=== PATIENT | female | born 1995 | race Asian ===

== ENCOUNTER 2022-07-09 20:29 | Inpatient (IN) | payer OTHER ==
[~2022-07-09] VITALS: Ht 149.9 cm; Wt 56.7 kg
[2022-07-09] MEDS ORDERED: SODIUM CHLORIDE 0.9% 1,000 ML IV ONE ×3 (21:15→22:00)
[2022-07-09] MEDS ORDERED: ONDANSETRON HCL 4MG/2ML INJ IV STA (21:31)
[2022-07-09 21:33] LABS: HEMATOCRIT. 48.7 % (36.0-48.0); HEMOGLOBIN. 14.4 g/dL (12.0-16.0); MEAN CORPUSCULAR HEMOGLOBIN 26.4 pg (28.0-32.0); MEAN CORPUSCULAR VOLUME 89.6 fL (81.0-99.0); PLATELET 564 x1000/uL (130-400); RED BLOOD CELL COUNT 5.43 mill/uL (4.2-5.4); RED CELL DISTRIBUTION WIDTH 13.8 % (11.6-14.6)
[2022-07-09 21:43] LABS: CHLORIDE 98 mEq/L (98-107)
[2022-07-09 21:44] LABS: BG BASE EXCESS -28.6 mmol/L (-2.0-2.0); BG CARBOXYHEMOGLOBIN 0.4 % (0.5-1.5); BG DEOXYHEMOGLOBIN 1.8 % (0.0-5.0); BG HCO3 ACT 2.5 mmol/L (22.0-26.0); BG METHEMOGLOBIN 0.6 % (0.0-1.5); BG OXYGEN SATURATION 98.2 % (92.0-98.5); BG OXYHEMOGLOBIN 97.2 % (94.0-97.0); BG PCO2 12.5 mmHg (35.0-45.0); BG PH 6.924 (7.350-7.450); BG PO2 129.5 mmHg (75.0-100.0); BG SAMPLE SITE LEFT RADIAL; BG VENT MODE ROOM AIR
[2022-07-09 21:47] LABS: HCG SCREEN NEGATIVE
[2022-07-09 21:50] LABS: BETA HYDROXYBUTYRATE 8.3 mMol/L (0.0-0.3); ETHANOL BLOOD < 10 mg/dL
[2022-07-09 21:58] LABS: CLARITY URINE CLEAR (CLEAR); COLOR URINE YELLOW (YELLOW); KETONES URINE 4+ (NEGATIVE); LEUKOCYTE ESTERASE URINE NEGATIVE (NEGATIVE); NITRITE URINE NEGATIVE (NEGATIVE); OCCULT BLOOD URINE 1+ (NEGATIVE); PROTEIN URINE 1+ (NEGATIVE); SPECIFIC GRAVITY URINE 1.023 (1.005-1.030); UROBILINOGEN URINE 0.2 E.U./dL (0.2-1.0)
[2022-07-09] MEDS ORDERED: KCL 20MEQ/100ML PREMIX 100 ML IV PRN (22:00)
[2022-07-09] MEDS ORDERED: INSULIN REGULAR 100U/100ML PMX 100 ML IV NR (22:00)
[2022-07-09] MEDS: SODIUM CHLORIDE 0.9% 1,000 ML IV SCH (22:00)
[2022-07-09] MEDS ORDERED: IPRATROPIUM/ALBUTEROL 0.5-3(2.5)MG/3ML NEB HHN PRN (22:00)
[2022-07-09] MEDS ORDERED: HYDROMORPHONE HCL/PF 2MG/ML CPJ IV PRN (22:00)
[2022-07-09] MEDS ORDERED: ACETAMINOPHEN 650MG SUPP PR PRN ×2 (22:00)
[2022-07-09] MEDS ORDERED: DEXTROSE 50% WATER 50ML SYRINGE IV PRN (22:00)
[2022-07-09] MEDS ORDERED: INSULIN REGULAR (HUMULIN R) 300UNITS/3ML VIAL IV ONE (22:00)
[2022-07-09] MEDS ORDERED: INSULIN REGULAR (DRIP) 100 UNITS in SODIUM CHLORIDE 0.9% 99 ML IV ONE (22:00)
[2022-07-09] MEDS ORDERED: ONDANSETRON HCL 4MG/2ML INJ IV PRN (22:00)
[2022-07-09] MEDS ORDERED: MAGNESIUM 1 G PREMIX 100 ML IV PRN (22:00)
[2022-07-09] MEDS ORDERED: SODIUM BICARBONATE 8.4% 1 MEQ/ML 50ML SYR IV NR (22:00)
[2022-07-09 22:19] LABS: *AMPHETAMINES SCREEN URINE NEGATIVE (NEGATIVE); *BARBITURATES SCREEN URINE NEGATIVE (NEGATIVE); *BENZODIAZEPINES SCREEN URINE NEGATIVE (NEGATIVE); *COCAINE SCREEN URINE NEGATIVE (NEGATIVE); CANNABINOID URINE SCREEN NEGATIVE (NEGATIVE); METHADONE URINE SCREEN NEGATIVE (NEGATIVE); OPIATES URINE SCREEN NEGATIVE (NEGATIVE); PHENCYCLIDINE URINE SCREEN NEGATIVE (NEGATIVE)
[2022-07-09] MEDS: BLOOD SUGAR DIAGNOSTIC STRIP TEST SCH ×2 (22:26→23:23)
[2022-07-09] MEDS ORDERED: INSULIN REGULAR 100U/100ML PMX 100 ML IV PRN (23:00)
[2022-07-10] LABS: PLATELET ESTIMATE MARKEDLY INCREASED
[2022-07-10] MEDS: BLOOD SUGAR DIAGNOSTIC STRIP TEST SCH ×16 (00:30→21:00)
[2022-07-10 01:16] LABS: CHLORIDE 108 mEq/L (98-107)
[2022-07-10 01:21] LABS: PHOSPHORUS 2.7 mg/dL (2.5-4.9)
[2022-07-10] MEDS: SODIUM CHLORIDE 0.45% 1,000 ML IV SCH ×6 (02:00→18:00)
[2022-07-10] MEDS: SODIUM CHLORIDE 0.9% 1,000 ML IV SCH ×4 (02:00→14:00)
[2022-07-10] MEDS: ENOXAPARIN 40MG/0.4ML SYR SUBCUT SCH (02:13)
[2022-07-10 03:54] LABS: HEMOGLOBIN. 12.8 g/dL (12.0-16.0); MEAN CORPUSCULAR HEMOGLOBIN 26.7 pg (28.0-32.0); MEAN CORPUSCULAR VOLUME 81.3 fL (81.0-99.0); MEAN PLATELET VOLUME 7.3 fl (7.4-10.4); PLATELET 434 x1000/uL (130-400); RED CELL DISTRIBUTION WIDTH 12.8 % (11.6-14.6)
[2022-07-10] MEDS: DEXT 5%/0.45% NACL 1000ML 1,000 ML IV SCH ×4 (04:08→21:02)
[2022-07-10 04:36] LABS: CHLORIDE 112 mEq/L (98-107)
[2022-07-10 04:51] LABS: HDL CHOLESTEROL 64 mg/dL (40-59); LDL CHOLESTEROL 142 mg/dL (5-100); T4 FREE 0.98 ng/dL (0.76-1.46)
[2022-07-10 06:16] LABS: CHLORIDE 110 mEq/L (98-107)
[2022-07-10 06:16] LABS: BASOPHILS % 0.1 % (0.0-2.0); EOSINOPHILS % 0.6 % (0.0-5.0); LYMPHOCYTES % 7.8 % (20.0-50.0); MONOCYTES % 7.6 % (2.0-8.0); NEUTROPHILS % 83.9 % (40.0-76.0)
[2022-07-10 06:23] LABS: PHOSPHORUS 1.3 mg/dL (2.5-4.9)
[2022-07-10] MEDS ORDERED: DEXTROSE 50% WATER 50ML SYRINGE IV PRN (09:00)
[2022-07-10] MEDS: FAMOTIDINE 20MG/2ML VIAL IV SCH ×2 (09:00→22:03)
[2022-07-10 09:11] LABS: PLATELET ESTIMATE SLIGHTLY INCREASED
[2022-07-10] MEDS ORDERED: PIPERACILLIN/TAZ 3.375G PREMIX 50 ML IV SCH (09:30)
[2022-07-10 09:34] LABS: CHLORIDE 113 mEq/L (98-107)
[2022-07-10 09:40] LABS: PHOSPHORUS 1.1 mg/dL (2.5-4.9)
[2022-07-10] MEDS ORDERED: VANCOMYCIN 1G PREMIX 200 ML IV SCH (10:00)
[2022-07-10] MEDS ORDERED: INSULIN GLARGINE 100 UNITS/ML SUBCUT SCH ×2 (10:00→22:00)
[2022-07-10 11:10] LABS: HEMATOCRIT. 38.7 % (36.0-48.0); HEMOGLOBIN. 12.8 g/dL (12.0-16.0); MEAN PLATELET VOLUME 7.4 fl (7.4-10.4); PLATELET 425 x1000/uL (130-400); RED BLOOD CELL COUNT 4.72 mill/uL (4.2-5.4); RED CELL DISTRIBUTION WIDTH 12.5 % (11.6-14.6)
[2022-07-10] MEDS: INSULIN LISPRO 100 UNITS/ML SUBCUT SCH ×3 (12:00→22:05)
[2022-07-10 12:54] LABS: CHLORIDE 112 mEq/L (98-107)
[2022-07-10 12:58] LABS: PHOSPHORUS 1.2 mg/dL (2.5-4.9)
[2022-07-10 13:02] LABS: PLATELET ESTIMATE INCREASED
[2022-07-10 14:15] LABS: BG BASE EXCESS -10.8 mmol/L (-2.0-2.0); BG CARBOXYHEMOGLOBIN 0.9 % (0.5-1.5); BG DEOXYHEMOGLOBIN 1.9 % (0.0-5.0); BG FRACTION INSPIRED OXYGEN 21; BG HCO3 ACT 13.1 mmol/L (22.0-26.0); BG METHEMOGLOBIN 0.3 % (0.0-1.5); BG OXYGEN SATURATION 98.1 % (92.0-98.5); BG OXYHEMOGLOBIN 96.9 % (94.0-97.0); BG PCO2 24.8 mmHg (35.0-45.0); BG PH 7.342 (7.350-7.450); BG PO2 99.4 mmHg (75.0-100.0); BG SAMPLE SITE LEFT RADIAL; BG TOTAL HEMOGLOBIN 13.1 g/dL (12.0-18.0); BG VENT MODE ROOM AIR
[2022-07-10] MEDS ORDERED: PIPERACILLIN/TAZOBACTAM 3.375 G in DEXTROSE 5% WATER 50 ML IV SCH (15:00)
[2022-07-10 16:20] VITALS: BP 103/62
[2022-07-10 16:26] LABS: CHLORIDE 110 mEq/L (98-107); PHOSPHORUS 1.1 mg/dL (2.5-4.9)
[2022-07-10] MEDS ORDERED: NALOXONE HCL 0.4MG/ML VIAL IV PRN (17:30)
[2022-07-10] MEDS: VANCOMYCIN 500MG PREMIX 100 ML IV SCH (19:29)
[2022-07-10 20:00] VITALS: BP 127/55
[2022-07-10] MEDS ORDERED: SODIUM PHOS,M-BASIC-D-BASIC 15 MM in DEXT 5% WATER 245 ML IV NR (20:00)
[2022-07-10] MEDS: PIPERACILLIN/TAZOBACTAM 3.375 G in DEXTROSE 5% WATER 50 ML IV SCH (22:01)
[2022-07-11] VITALS: BP 101/73
[2022-07-11] MEDS: ENOXAPARIN 40MG/0.4ML SYR SUBCUT SCH (00:19)
[2022-07-11] MEDS: VANCOMYCIN 500MG PREMIX 100 ML IV SCH ×3 (00:19→14:56)
[2022-07-11 04:00] VITALS: BP 128/73
[2022-07-11] MEDS: SODIUM CHLORIDE 0.9% 1,000 ML IV SCH ×4 (04:10→11:21)
[2022-07-11] MEDS: PIPERACILLIN/TAZOBACTAM 3.375 G in DEXTROSE 5% WATER 50 ML IV SCH ×2 (06:11→13:38)
[2022-07-11] MEDS: INSULIN LISPRO 100 UNITS/ML SUBCUT SCH ×3 (07:45→13:38)
[2022-07-11] MEDS: BLOOD SUGAR DIAGNOSTIC STRIP TEST SCH ×2 (07:47→12:28)
[2022-07-11 08:00] VITALS: BP 114/77
[2022-07-11 08:25] LABS: BASOPHILS % 0.1 % (0.0-2.0); HEMATOCRIT. 34.9 % (36.0-48.0); HEMOGLOBIN. 11.8 g/dL (12.0-16.0); LYMPHOCYTES % 10.6 % (20.0-50.0); MEAN CORPUSCULAR HEMOGLOBIN 26.7 pg (28.0-32.0); MEAN CORPUSCULAR VOLUME 79.3 fL (81.0-99.0); MEAN PLATELET VOLUME 7.6 fl (7.4-10.4); MONOCYTES % 6.2 % (2.0-8.0); NEUTROPHILS % 83.1 % (40.0-76.0); PLATELET 333 x1000/uL (130-400); RED BLOOD CELL COUNT 4.41 mill/uL (4.2-5.4)
[2022-07-11] MEDS: FAMOTIDINE 20MG/2ML VIAL IV SCH (08:34)
[2022-07-11 09:36] LABS: CHLORIDE 110 mEq/L (98-107)
[2022-07-11] MEDS ORDERED: KCL 20MEQ/100ML PREMIX 100 ML IV NR (10:00)
[2022-07-11] MEDS ORDERED: OSELTAMIVIR 75MG CAPSULE PO SCH (10:06)
[2022-07-11] MEDS ORDERED: POTASSIUM-SODIUM PHOSPHATE POWDER PACKET PO SCH (11:00)
[2022-07-11] MEDS ORDERED: POTASSIUM CHLORIDE 20MEQ/PACKET PO NR (11:15)
[2022-07-11 12:00] VITALS: BP 111/67
[2022-07-11] MEDS ORDERED: INSULIN LISPRO 100 UNITS/ML SUBCUT SCH (12:40)
[2022-07-11] MEDS ORDERED: TAM75 PO (14:03)
[2022-07-11] MEDS ORDERED: BLOO-1618 MC (14:03)
[2022-07-11 15:42] VITALS: BP 115/61
[2022-07-11 16:00] VITALS: BP 115/61
[2022-07-11] MEDS ORDERED: FAMOTIDINE 20MG TABLET PO SCH (21:00)
== END 2022-07-11 16:45 | disposition home or self-care (01) | DRG 871 ==
LOC: ER 20:29 → EDBEDREQ 22:05 → EDBEDREQTM 22:05 → SUPCPDRO 22:39 → 7EST 07-10 00:18 → MICUSO 07-10 01:19 → 8WST 07-10 17:45
PROVIDERS: ADMIT Internal Medicine; ATTEND Internal Medicine
DX: A41.9 Sepsis, unspecified organism (principal); E10.10 Type 1 diabetes mellitus with ketoacidosis without coma; E87.1 Hypo-osmolality and hyponatremia; E87.4 Mixed disorder of acid-base balance; Z20.822 Contact with and (suspected) exposure to COVID-19; E87.5 Hyperkalemia; D75.839 Thrombocytosis, unspecified; R79.89 Other specified abnormal findings of blood chemistry; E83.39 Other disorders of phosphorus metabolism; E83.51 Hypocalcemia; D72.829 Elevated white blood cell count, unspecified; J10.1 Influenza due to other identified influenza virus with other respiratory manifestations; Z79.4 Long term (current) use of insulin
CPT/HCPCS: 36415; 36600; 71045; 74176; 80048; 80053; 80061; 80202; 80305; 80320; 81003; 82010; 82375; 82652; 82805; 82962; 83036; 83605; 83735; 83930; 84100; 84145; 84439; 84443; 84703; 85025; 87426; 87804; 93005; 93970; 99291; J1170; J1650; J1815; J2405; J2543; J3370; J3480; J3490; J7030; J7050; J7060; G0480